=== PATIENT | male | born 2000 | race Caucasian/White ===

== ENCOUNTER 2022-10-01 15:56 | Emergency (ER) | payer SELFPAY ==
[~2022-10-01] VITALS: Ht 180.3 cm; Wt 89.4 kg
--- NOTE | 2022-10-01 16:34 | NUR ---
RECEIVED PT 22 YRS MALE CAME FROM HOME WALKING IN C/O foren body in both eyes able to oben with no diffecultty
--- NOTE | 2022-10-01 16:40 | NUR ---
Seen by DR. SHRAP
[2022-10-01] MEDS ORDERED: FLUORESCEIN SODIUM OPHTH 1 EA STRIP ONE (16:52)
[2022-10-01] MEDS ORDERED: POLY10DR OP (17:05)
--- NOTE | 2022-10-01 17:10 | NUR ---
EYE examin done by DR. SHARP
--- NOTE | 2022-10-01 17:20 | NUR ---
Patient discharged to home in stable condition. Written and verbal after care instructions given. Patient verbalizes understanding of instruction.
[2022-10-01] MEDS ORDERED: FLUORESCEIN SODIUM OPHTH 1 EA STRIP OP ONE (17:30)
[2022-10-01 17:45] VITALS: BP 138/85
== END 2022-10-01 17:46 | disposition home or self-care (01) ==
LOC: ER 15:58
DX: H57.89 Other specified disorders of eye and adnexa (principal); Z60.2 Problems related to living alone